=== PATIENT | male | born 1960 | race Asian ===

== ENCOUNTER 2021-09-21 12:38 | Inpatient (IN) | payer OTHER ==
[~2021-09-21] VITALS: Ht 167.6 cm; Wt 61.9 kg
[2021-09-21] VITALS (19 sets, daily range): BP systolic 90–149; BP diastolic 46–90; TEMP 98–100.8; Ht 167.6 cm; Wt 61.9 kg
[~2021-09-21 12:38] MED LIST: APIX1TAB PO; BUTRANS15 MCG/HR TD; DOCU SOFT100 MG PO; FLUOXETINE40 MG PO; HYDR25CA25 PO; LIPITOR40 MG PO; MIRALAX17 GM PO; NEURONTIN800 MG PO; OMEPRAZOLE DR40 MG PO; SENNO8.6 MG PO; SEROQUEL200 MG PO; TAMS0.4C PO; TIZANIDINE HYDRO2 MG PO; TRAMADOL HYDROC50 MG PO
[2021-09-21 13:05] LABS: PLATELET COUNT 214 K/uL (142-355)
[2021-09-21 13:10] LABS: POTASSIUM 4.6 mmol/L (3.6-5.2)
[2021-09-21] MEDS ORDERED: MAGN400T4 PO (16:36)
[2021-09-21] MEDS ORDERED: QUET300T PO (16:36)
[2021-09-21] MEDS ORDERED: HALO5INJ3 IM (16:37)
[2021-09-21] MEDS ORDERED: GABA400C2 PO (16:37)
[2021-09-21] MEDS ORDERED: LORA2INJ21 IM (16:37)
[2021-09-21] MEDS ORDERED: FLUOXETINE20 MG PO (16:38)
[2021-09-21] MEDS ORDERED: DIPH50IN IM (16:38)
[2021-09-21] MEDS ORDERED: BUPRENORPHINE H1 SU3 PO (16:39)
[2021-09-21] MEDS ORDERED: ENTERIC COATED325 MG PO (16:39)
[2021-09-22] VITALS (22 sets, daily range): BP systolic 90–132; BP diastolic 46–98; TEMP 97.9–100
[2021-09-22 04:47] LABS: POTASSIUM 4.9 mmol/L (3.6-5.2)
[2021-09-22 04:55] LABS: PLATELET COUNT 179 K/uL (142-355)
[2021-09-22] MEDS ORDERED: ASPIRIN/ENTERIC81 MG PO (15:34)
[2021-09-23] VITALS (73 sets, daily range): BP systolic 19–1338; BP diastolic 40–99; TEMP 96–99.2
[2021-09-23 05:02] LABS: PLATELET COUNT 165 K/uL (142-355)
[2021-09-23 05:24] LABS: POTASSIUM 4.7 mmol/L (3.6-5.2)
[2021-09-24 00:38] VITALS: BP 147/74
[2021-09-24 04:38] VITALS: BP 138/84; TEMP 97.6
[2021-09-24 06:45] VITALS: BP 138/87; TEMP 97.4
[2021-09-24 08:18] LABS: PLATELET COUNT 224 K/uL (142-355)
[2021-09-24 08:39] LABS: POTASSIUM 4.1 mmol/L (3.6-5.2)
[2021-09-24 09:12] LABS: PARTIAL THROMBOPLASTIN TIME 34.5 SECONDS (24.5-33.6)
[2021-09-24 20:30] VITALS: BP 140/68
[2021-09-24 23:57] VITALS: BP 128/68
[2021-09-25] VITALS (13 sets, daily range): BP systolic 137–173; BP diastolic 64–90; TEMP 97.6–99.4
[2021-09-25 05:38] LABS: PLATELET COUNT 259 K/uL (142-355)
[2021-09-25 05:52] LABS: POTASSIUM 3.4 mmol/L (3.6-5.2)
[2021-09-26] VITALS (10 sets, daily range): BP systolic 115–170; BP diastolic 57–91; TEMP 97.5–99.5
[2021-09-26 05:33] LABS: PLATELET COUNT 290 K/uL (142-355)
[2021-09-26 05:43] LABS: POTASSIUM 3.4 mmol/L (3.6-5.2)
[2021-09-27] VITALS (12 sets, daily range): BP systolic 93–136; BP diastolic 47–69; TEMP 96.9–98.5
[2021-09-28 00:01] VITALS: BP 100/45; TEMP 98.7
[2021-09-28 02:00] VITALS: BP 96/46
[2021-09-28 04:00] VITALS: BP 100/47
[2021-09-28 06:00] VITALS: BP 107/47
[2021-09-28 08:26] LABS: PLATELET COUNT 265 K/uL (142-355)
[2021-09-28 08:34] LABS: POTASSIUM 3.7 mmol/L (3.6-5.2)
[2021-09-28 20:00] VITALS: BP 116/44; TEMP 99.2
[2021-09-28 23:30] VITALS: BP 116/41; TEMP 97.6
[2021-09-29] VITALS (8 sets, daily range): BP systolic 75–118; BP diastolic 40–50; TEMP 97.3–98.8
[2021-09-29 05:32] LABS: PLATELET COUNT 254 K/uL (142-355)
[2021-09-29 05:47] LABS: POTASSIUM 3.7 mmol/L (3.6-5.2)
[2021-09-30] VITALS: BP 69/31; TEMP 98.7
[2021-09-30 00:02] LABS: POTASSIUM 3.6 mmol/L (3.6-5.2)
== END 2021-09-30 01:40 | disposition short-term general hospital (02) | DRG 177 ==
LOC: ED 12:38 → MED/SURG 17:50
PROVIDERS: Emergency Medicine; Internal Medicine Endocrinology, Diabetes & Metabolism; ADMIT Internal Medicine; ATTEND Internal Medicine
DX: U07.1 COVID-19 (principal); J12.82 Pneumonia due to coronavirus disease 2019; J96.01 Acute respiratory failure with hypoxia; G40.802 Other epilepsy, not intractable, without status epilepticus; F31.30 Bipolar disorder, current episode depressed, mild or moderate severity, unspecified; R78.81 Bacteremia; E78.49 Other hyperlipidemia; N40.0 Benign prostatic hyperplasia without lower urinary tract symptoms; G62.89 Other specified polyneuropathies; I48.91 Unspecified atrial fibrillation; K21.9 Gastro-esophageal reflux disease without esophagitis; F43.10 Post-traumatic stress disorder, unspecified; F17.200 Nicotine dependence, unspecified, uncomplicated; I95.89 Other hypotension; B95.62 Methicillin resistant Staphylococcus aureus infection as the cause of diseases classified elsewhere
CPT/HCPCS: 36415; 36600; 51702; 80048; 80053; 80202; 81000; 82550; 82805; 83880; 84484; 85007; 85027; 85379; 85385; 85610; 85730; 87040; 87185; 87205; 93005; 94640; 94660; 94664; 94760; 96365; 96366; 96375; 99284; J0132; J0171; J0248; J0282; J0456; J0696; J1100; J1630; J1644; J1650; J1885; J1956; J2060; J2270; J2310; J2543; J3370; J3486; J3490